=== PATIENT | female | born 1985 | race Caucasian/White ===

== ENCOUNTER → 2017-02-25 | Outpatient (REF) | payer BC | LOC: M SFHCWAGY 15:33 | PROVIDERS: ATTEND Nurse Practitioner Family | DX: Z12.4 Encounter for screening for malignant neoplasm of cervix (principal); R87.610 Atypical squamous cells of undetermined significance on cytologic smear of cervix (ASC-US) ==

== ENCOUNTER 2017-06-11 11:43 | Outpatient (CLI) | payer BC ==
[~2017-06-11] VITALS: Ht 175.3 cm; Wt 122.5 kg
[~2017-06-11 11:43] MED LIST: RANI150T PO; TRI-TAB2 PO
[2017-06-11] MEDS ORDERED: NS 1,000 ML IV SCH (12:00)
--- NOTE | 2017-06-11 13:04 | ROOR ---
Patient Name: Gena Henriquez Procedure Date: 06/11/2017 12:43 PM Date of : 1985 Age: 32 Room: [facility] Gender: Female Note Status: Finalized Procedure: Upper Endoscopy + Biopsies Indications: Heartburn Providers: Isra Moses MD Referring MD: Sal Guzman MD Requesting Provider: Medicines: Monitored Anesthesia Care Complications: No immediate complications. Procedure: Pre-Anesthesia Assessment: - The heart rate, respiratory rate, oxygen saturations, blood pressure, adequacy of pulmonary ventilation, and response to care were monitored throughout the procedure. The Endoscope was introduced through the mouth, and advanced to the second part of duodenum. The upper GI endoscopy was accomplished without difficulty. The patient tolerated the procedure well. Findings: The Z-line was irregular and was found 35 cm from the incisors. Non-severe esophagitis with no bleeding was found 35 cm from the incisors. Biopsies were taken with a cold forceps for histology. A medium-sized hiatal hernia was present. No other significant abnormalities were identified in a careful examination of the stomach. The exam of the duodenum was otherwise normal. Impression: - Z-line irregular, 35 cm from the incisors. - Non-severe reflux esophagitis. Biopsied. - Medium-sized hiatal hernia. - The examination was otherwise normal. Recommendation: - Await pathology results. - Discharge patient to home. - Follow an antireflux regimen. - Continue present medications. - Await pathology results. - Telephone GI clinic for pathology results in 1 week. - Repeat upper endoscopy for surveillance based on pathology results. - Return to referring physician. - The findings and recommendations were discussed with the patient's family. Isra Moses MD Isra Moses MD 06/11/2017 1:04:41 PM This report has been signed electronically. Number of Addenda: 0 Note Initiated On: 06/11/2017 12:43 PM Estimated Blood Loss: Estimated blood loss: none.
[2017-06-11] MEDS ORDERED: LIDOCAINE 2% INJ 100 MG/5 ML SDV (FOR ANES.) As Ordered ONE (13:10)
[2017-06-11] MEDS ORDERED: PROPOFOL 200 MG/20 ML VIAL As Ordered ONE (13:11)
--- NOTE | 2017-06-11 13:21 | ROOR ---
Patient Name: Gena Henriquez Procedure Date: 06/11/2017 12:44 PM Date of : 1985 Age: 32 Room: [facility] Gender: Female Note Status: Finalized Procedure: Total Colonoscopy to Cecum +ileoscopy + Bx. To r/o Microscopic Colitis Indications: Clinically significant diarrhea of unexplained origin Providers: Isra Moses MD Referring MD: Sal Guzman MD Requesting Provider: Medicines: Monitored Anesthesia Care Complications: No immediate complications. Procedure: Pre-Anesthesia Assessment: - The heart rate, respiratory rate, oxygen saturations, blood pressure, adequacy of pulmonary ventilation, and response to care were monitored throughout the procedure. The Colonoscope was introduced through the anus and advanced to the terminal ileum, with identification of the appendiceal orifice and IC valve. The colonoscopy was performed without difficulty. The patient tolerated the procedure well. The quality of the bowel preparation was excellent. Findings: The perianal and digital rectal examinations were normal. Non-bleeding internal hemorrhoids were found during retroflexion. The hemorrhoids were small and Grade I (internal hemorrhoids that do not prolapse). No other significant abnormalities were identified in a careful examination of the remainder of the colon. Biopsies for histology were taken with a cold forceps from the ascending colon, transverse colon and descending colon for evaluation of microscopic colitis. The terminal ileum appeared normal. The exam was otherwise without abnormality. Impression: - Non-bleeding internal hemorrhoids. - The examined portion of the ileum was normal. - The examination was otherwise normal. - Biopsies were taken with a cold forceps from the ascending colon, transverse colon and descending colon for evaluation of microscopic colitis. - The exam was otherwise normal to the cecum. Recommendation: - Patient has a contact number available for emergencies. The signs and symptoms of potential delayed complications were discussed with the patient. Return to normal activities tomorrow. Written discharge instructions were provided to the patient. - High fiber diet. - Discharge patient to home. - Continue present medications. - Await pathology results. - Telephone GI clinic for pathology results in 1 week. - Repeat colonoscopy at age 51 for screening purposes. - Return to referring physician. - The findings and recommendations were discussed with the patient's family. Isra Moses MD Isra Moses MD 06/11/2017 1:21:07 PM This report has been signed electronically. Number of Addenda: 0 Note Initiated On: 06/11/2017 12:44 PM Estimated Blood Loss: Estimated blood loss: none.
[2017-06-11 13:45] VITALS: BP 146/92
== END 2017-06-11 14:12 | disposition home or self-care (01) ==
LOC: M OPP 11:43
PROVIDERS: ATTEND Internal Medicine Gastroenterology
DX: K58.0 Irritable bowel syndrome with diarrhea (principal); R10.9 Unspecified abdominal pain; K64.0 First degree hemorrhoids; R12 Heartburn; K22.8 Other specified diseases of esophagus; K44.9 Diaphragmatic hernia without obstruction or gangrene; K21.0 Gastro-esophageal reflux disease with esophagitis; E78.5 Hyperlipidemia, unspecified; F41.9 Anxiety disorder, unspecified; G43.909 Migraine, unspecified, not intractable, without status migrainosus; Z79.899 Other long term (current) drug therapy; Z80.9 Family history of malignant neoplasm, unspecified

== ENCOUNTER → 2017-10-24 | Outpatient (REF) | payer BC ==
[2017-10-24 12:23] LABS: LUTEINIZING HORMONE 2.7 mIU/mL
[2017-10-24 12:24] LABS: ESTRADIOL < 19.0 PG/ML; FOLLICLE STIMULATING HORMONE 5.7 mIU/mL
== END ==
LOC: M LAB REF 11:40
DX: E28.2 Polycystic ovarian syndrome (principal)
CPT/HCPCS: 83001

== ENCOUNTER → 2018-04-30 | Outpatient (REF) | payer OTHER | LOC: M SFHCWAGY 13:58 | DX: Z12.4 Encounter for screening for malignant neoplasm of cervix (principal) ==

== ENCOUNTER → 2018-05-25 | Outpatient (REF) | payer OTHER | LOC: M SFHCWAGY 11:42 | DX: R87.615 Unsatisfactory cytologic smear of cervix (principal); Z12.4 Encounter for screening for malignant neoplasm of cervix ==

== ENCOUNTER → 2018-09-29 | Outpatient (CLI) | payer OTHER | LOC: M WUC 10:09 | DX: S80.12XA Contusion of left lower leg, initial encounter (principal); S90.02XA Contusion of left ankle, initial encounter; R60.0 Localized edema; X58.XXXA Exposure to other specified factors, initial encounter; Y92.9 Unspecified place or not applicable | CPT/HCPCS: 73590 ==

== ENCOUNTER → 2019-04-23 | Outpatient (CLI) | payer BC, OTHER ==
[2019-04-23 10:36] LABS: BASO # 0.1 10^3/uL (0.0-0.2); BASO % 0.5 % (0.0-1.0); EOS # 0.1 10^3/uL (0.0-0.50); EOS % 0.6 % (0.0-3.0); HEMATOCRIT 38.9 % (36.0-47.0); HEMOGLOBIN 12.8 g/dl (12.0-15.5); LYMPH # 2.7 10^3/uL (1.5-4.5); LYMPH % 26.8 % (24.0-44.0); MEAN CORPUSCULAR HEMOGLOBIN 29.6 pg (27.0-33.0); MEAN CORPUSCULAR HGB CONC 32.9 g/dl (32.0-36.5); MEAN CORPUSCULAR VOLUME 89.8 fl (80.0-96.0); MONO # 0.5 10^3/uL (0.0-0.8); NEUTROPHILS # 6.7 10^3/uL (1.8-7.7); NEUTROPHILS % 66.8 % (36.0-66.0); PLATELET COUNT, AUTOMATED 324 10^3/uL (150-450); RED BLOOD COUNT 4.33 10^6/uL (4.00-5.40)
[2019-04-23 11:53] LABS: HEPATITIS C VIRUS ABY INDEX 0.1 INDEX (<0.8); HIV 1&2 SCREEN CENTAUR NEGATIVE (NEGATIVE); RUBELLA IgG QUALITATIVE IMMUNE (IMMUNE)
[2019-04-23 11:57] LABS: CHLAMYDIA DNA AMPLIFICATION NEGATIVE (NEGATIVE); GC DNA AMPLIFICATION NEGATIVE (NEGATIVE)
== END ==
LOC: M LAB 09:37
PROVIDERS: ATTEND Specialist
DX: Z36.89 Encounter for other specified antenatal screening (principal); Z3A.00 Weeks of gestation of pregnancy not specified

== ENCOUNTER → 2019-05-06 | Outpatient (CLI) | payer BC, OTHER | LOC: M SMT 08:25 | PROVIDERS: ATTEND Specialist | DX: Z36.89 Encounter for other specified antenatal screening (principal); Z3A.00 Weeks of gestation of pregnancy not specified ==

== ENCOUNTER → 2019-08-10 | Outpatient (CLI) | payer BC, OTHER ==
[2019-08-10 15:53] LABS: HEMATOCRIT 34.6 % (36.0-47.0); HEMOGLOBIN 11.1 g/dl (12.0-15.5); MEAN CORPUSCULAR HEMOGLOBIN 29.8 pg (27.0-33.0); MEAN CORPUSCULAR HGB CONC 32.1 g/dl (32.0-36.5); MEAN CORPUSCULAR VOLUME 92.8 fl (80.0-96.0); PLATELET COUNT, AUTOMATED 306 10^3/uL (150-450); RED BLOOD COUNT 3.73 10^6/uL (4.00-5.40)
== END ==
LOC: M SMT 09:16
PROVIDERS: ATTEND Obstetrics & Gynecology
DX: Z34.82 Encounter for supervision of other normal pregnancy, second trimester (principal); Z36.89 Encounter for other specified antenatal screening

== ENCOUNTER → 2019-08-16 | Outpatient (CLI) | payer BC, OTHER | LOC: M LAB 07:11 | PROVIDERS: ATTEND Obstetrics & Gynecology | DX: Z34.82 Encounter for supervision of other normal pregnancy, second trimester (principal); Z36.89 Encounter for other specified antenatal screening ==

== ENCOUNTER → 2019-10-14 | Outpatient (REF) | payer OTHER | LOC: M SFHCWAGY 13:03 | PROVIDERS: ATTEND Specialist | DX: Z36.85 Encounter for antenatal screening for Streptococcus B (principal) ==

== ENCOUNTER → 2019-10-25 | Outpatient (CLI) | payer BC, OTHER | LOC: M PLALAB 12:16 | PROVIDERS: ATTEND Advanced Practice Midwife | DX: O99.213 Obesity complicating pregnancy, third trimester (principal) ==

== ENCOUNTER → 2019-10-28 | Outpatient (CLI) | payer BC, OTHER ==
--- NOTE | 2019-10-28 15:36 | REP ---
Clinical: Growth evaluation. Comparison: None. Findings: Examination demonstrates a single live intrauterine in cephalic presentation. motion is identified by technologist. Placenta is noted fundal and grade I without evidence for placenta previa or abruption. Amniotic fluid volume is normal. Cervix measures 3.6 cm in length and appears closed. No evidence for nuchal cord. Gestational age by current measurements 38 weeks 6 days FHR equals 132 beats per minute. BPD 9.7 cm 39 weeks 4 days HC 34.4 cm 39 weeks 4 days AC 35.8 cm 39 weeks 4 days FL 7.4 cm 39 weeks 6 days HL 6.6 cm 38 weeks 2 days HC/AC ratio 0.96 Estimated weight 3754 grams (84th percentile) Amniotic fluid index: 11.7 cm (7.4 - 24.0) Impression: Single live intrauterine in cephalic presentation with biometrical measurements at 38-week 6 days gestational age. Electronically Signed by Jun Foy MD 10/28/2019 03:27 P
== END ==
LOC: M WHC 13:59
PROVIDERS: ATTEND Advanced Practice Midwife
DX: O99.213 Obesity complicating pregnancy, third trimester (principal)

== ENCOUNTER 2019-11-06 15:46 | Inpatient (IN) | payer BC, OTHER ==
[2019-11-06] VITALS (7 sets, daily range): BP systolic 123–144; BP diastolic 68–94
[~2019-11-06] VITALS: Ht 175.3 cm; Wt 145.9 kg
[2019-11-06 16:59] LABS: HEMATOCRIT 38.6 % (36.0-47.0); HEMOGLOBIN 12.4 g/dl (12.0-15.5); MEAN CORPUSCULAR HEMOGLOBIN 28.2 pg (27.0-33.0); MEAN CORPUSCULAR HGB CONC 32.1 g/dl (32.0-36.5); MEAN CORPUSCULAR VOLUME 87.9 fl (80.0-96.0); PLATELET COUNT, AUTOMATED 288 10^3/uL (150-450); RED BLOOD COUNT 4.39 10^6/uL (4.00-5.40); WHITE BLOOD COUNT 11.2 10^3/uL (4.0-10.0)
[2019-11-06] MEDS: miSOPROStol 50 MCG 1/2 TAB (S0191) SL SCH ×2 (17:01→21:09)
[2019-11-06] MEDS ORDERED: PRENTAB9 PO (18:21)
[2019-11-06] MEDS ORDERED: ACETAMINOPHEN 500 MG TAB PO PRN (18:30)
--- NOTE | 2019-11-06 18:46 | HPE ---
DATE OF ADMISSION: 11/06/2019 A 34-year-old G1, P0 female, 39-0/7 weeks gestation by last menstrual period (LMP), consistent with eight week ultrasound, estimated date of confinement (EDC) 11/13/2019, presents for labor induction. Patient has a large for gestational age infant, as determined by recent ultrasound. She has occasional contractions. She denies vaginal bleeding. There is good movement. The patient initiated care with [facility]. No other -related complications. MEDICAL HISTORY: Noncontributory. SURGICAL HISTORY: Tonsillectomy. ALLERGIES: None. SOCIAL HISTORY: Patient is . She denies cigarettes, alcohol, drug use. She lives in [place], [place]. FAMILY HISTORY: Noncontributory. PHYSICAL EXAMINATION: Blood pressure 144/94, pulse 94, afebrile. No apparent distress. HEAD AND NECK EXAM: Normal. HEART: Regular rate and rhythm. ABDOMEN: Nontender. Gravid. HEART TONES: Category 1. STERILE VAGINAL EXAM: 2 cm, 90% effaced, -2 posterior, soft vertex. CONTRACTIONS: Irregular. EXTREMITIES: Nontender. LABORATORIES: Group B Streptococcus (GBS) positive, HIV negative. Rapid plasma reagin (RPR) negative. Diabetes screen normal. ASSESSMENT: A 34-year-old G1 at 39-0/7 weeks gestation presents for labor induction. PLAN: The patient is admitted on 11/06/2019. Risks of induction were discussed.
[2019-11-07] VITALS (42 sets, daily range): BP systolic 122–150; BP diastolic 61–97
[2019-11-07] MEDS: miSOPROStol 50 MCG 1/2 TAB (S0191) SL SCH (01:04)
[2019-11-07] MEDS ORDERED: BUTORPHANOL 2 MG/ML INJ (J0595) IV ONE (03:30)
[2019-11-07] MEDS ORDERED: PROMETHAZINE INJ 25 MG/ML VIAL (J2550) IV ONE (03:30)
[2019-11-07] MEDS ORDERED: OXYTOCIN DRIP 30 UNITS in IV 1 EA IV SCH ×2 (05:45→22:18)
[2019-11-07] MEDS ORDERED: PENICILLIN G POTASSIUM IV 5 MU in D5W MINI-BAG PLUS 100 ML IV STA (09:02)
[2019-11-07] MEDS: LR 1,000 ML IV SCH ×3 (09:16→22:18)
[2019-11-07] MEDS ORDERED: FENTANYL/ROPIVACAINE/NACL BAG 100 ML EPIDURAL SCH (13:25)
[2019-11-07] MEDS ORDERED: NALOXONE INJ 0.4 MG/1 ML VIAL (J2310) IV PRN ×3 (13:25→22:10)
[2019-11-07] MEDS ORDERED: ePHEDrine SULFATE 25 MG/5 ML(5MG/ML) SYRINGE IV PRN (13:25)
[2019-11-07] MEDS ORDERED: LACTATED RINGER'S 1000 ML IV PRN (13:25)
[2019-11-07] MEDS ORDERED: EPIDURAL/PCA KEYS XX PRN (13:25)
[2019-11-07] MEDS ORDERED: ONDANSETRON 4MG/2ML VIAL (J2405) IV PRN ×4 (13:25→22:30)
[2019-11-07] MEDS ORDERED: diphenhydrAMINE INJ 50MG/ML VIAL (J1200) IV PRN ×2 (13:25→22:10)
[2019-11-07] MEDS ORDERED: REFRIGERATOR IV KEYS XX PRN (13:25)
[2019-11-07] MEDS ORDERED: FENTANYL 2MCG/ML ROPIVACAINE 0.2% IN 0.9% NACL 100ML IVBAG As Ordered ONE (13:25)
[2019-11-07] MEDS ORDERED: EPIDURAL COMMENT XX SCH (13:25)
[2019-11-07] MEDS: PENICILLIN G POTASSIUM IV 2.5 MU in IV 1 EA IV SCH ×2 (13:39→18:01)
[2019-11-07] MEDS ORDERED: ceFAZolin 2 GM/D5W 50 ML IV BAG (J0690 PER 500MG) As Ordered ONE (20:57)
[2019-11-07] MEDS ORDERED: BICITRA 30ML SOLN UDC As Ordered ONE (20:57)
[2019-11-07] MEDS ORDERED: ceFAZolin SOD 2 GM in IV 1 EA IV ONE (21:00)
[2019-11-07] MEDS ORDERED: BICITRA 30ML SOLN UDC PO ONE (21:00)
[2019-11-07] MEDS ORDERED: KETOROLAC 60 MG/2 ML VIAL (J1885) As Ordered ONE (21:48)
[2019-11-07] MEDS ORDERED: LIDOCAINE 2% W/EPIN INJ 20ML **PRES FREE As Ordered ONE (21:48)
[2019-11-07] MEDS ORDERED: ONDANSETRON 4MG/2ML VIAL (J2405) As Ordered ONE (21:48)
[2019-11-07] MEDS ORDERED: MEPERIDINE 50 MG/ML 1ML VIAL (J2175) As Ordered ONE (21:54)
[2019-11-07] MEDS ORDERED: fentaNYL 100 MCG/2 ML INJECTION (J3010) As Ordered ONE ×2 (21:56→22:57)
[2019-11-07] MEDS ORDERED: MORPHINE PRES-FREE INJ 10 MG/10 ML VIAL (J2274) As Ordered ONE (22:06)
[2019-11-07] MEDS ORDERED: NALBUPHINE HCL 10 MG/ML AMP (J2300) IV PRN (22:10)
[2019-11-07] MEDS ORDERED: METOCLOPRAMIDE INJ 10MG/2ML VIAL (J2765) IV PRN ×2 (22:10→22:15)
[2019-11-07] MEDS ORDERED: KETOROLAC 30 MG/ML VIAL (J1885) IV PRN (22:15)
[2019-11-07] MEDS ORDERED: LR 1,000 ML IV SCH (22:15)
[2019-11-07] MEDS ORDERED: RHOGAM 300 MCG (1500 IU) INJ (J2790) IM SCH (22:30)
[2019-11-07] MEDS ORDERED: MEASLES,MUMPS,RUBELLA VACCINE INJ (MMR-II) (90707) SC SCH (22:30)
[2019-11-07] MEDS ORDERED: OXYTOCIN 30 UNITS IN 0.9% NaCl 500ML IV BAG (J2590) As Ordered ONE (22:33)
[2019-11-07] MEDS: fentaNYL 100 MCG/2 ML INJECTION (J3010) IV PRN ×3 (23:02→23:18)
[2019-11-08] VITALS (9 sets, daily range): BP systolic 104–133; BP diastolic 62–82
[2019-11-08] MEDS ORDERED: KETOROLAC 30 MG/ML VIAL (J1885) IV SCH (04:30)
[2019-11-08] MEDS: PERCOCET 5MG/325MG TAB PO PRN ×2 (06:32→15:54)
[2019-11-08] MEDS: LR 1,000 ML IV SCH (06:49)
[2019-11-08 07:04] LABS: HEMATOCRIT 30.9 % (36.0-47.0); MEAN CORPUSCULAR VOLUME 87.8 fl (80.0-96.0); PLATELET COUNT, AUTOMATED 247 10^3/uL (150-450); RED BLOOD COUNT 3.52 10^6/uL (4.00-5.40); WHITE BLOOD COUNT 12.6 10^3/uL (4.0-10.0)
[2019-11-08 07:05] LABS: HEMOGLOBIN 10.2 g/dl (12.0-15.5)
[2019-11-08] MEDS ORDERED: OXYC1TAB23 PO (07:21)
[2019-11-08] MEDS: PRENATAL VITAMINS CHEWABLE TABLET PO SCH (08:36)
[2019-11-08] MEDS: IBUPROFEN 800 MG TAB PO SCH ×2 (12:00→20:03)
--- NOTE | 2019-11-08 19:48 | RO ---
DATE OF PROCEDURE: 11/07/2019 PREPROCEDURE DIAGNOSIS: 39 weeks, arrest of dilation, large for gestational age . POSTPROCEDURE DIAGNOSIS: 39 weeks, arrest of dilation, large for gestational age infant. PROCEDURE: Primary low transverse section. SURGEON: Leo Bianchi MD TITLE SEARCH MANAGER: Alexey Lindsay DO ANESTHESIA: Epidural. ESTIMATED BLOOD LOSS: 500 mL. URINE OUTPUT: 150 mL. FINDINGS: 4190 gram, 9 pound 4 ounce male , scores 9 and 9 in the left occiput posterior position along with asynclitism. There was a 1 cm superficial laceration on the right side of the baby's forehead as a result of the procedure. Normal uterus, fallopian tubes, and ovaries. DESCRIPTION OF PROCEDURE: The patient was taken to the operating room where epidural anesthesia was induced. She was prepped and draped in a sterile fashion in the supine position. A Schmitt catheter was already in place. A Pfannenstiel skin incision was made with a scalpel and carried through to the fascia. The fascia was nicked and extended. The fascia was dissected off the rectus muscles, the peritoneal cavity was entered. A Mobius retractor was placed, a bladder flap was created. A curvilinear incision was made in the lower uterine segment until clear fluid was noted. This was extended manually. The infant was delivered from the vertex position without difficulty. Loose nuchal cord times one was noted. The shoulders delivered with ease. The cord was doubly clamped and cut. The was handed off to awaiting nurses. The placenta was expressed. The uterus was closed with #0 Vicryl in a running locked fashion. A second imbricating layer of #0 Vicryl was placed. The Mobius retractor was removed. The peritoneum was closed with #2-0 Vicryl in a running fashion. The fascia was closed with #0 Vicryl in a running fashion. The deep layer was irrigated and closed with #2-0 chromic. The skin was closed with #4-0 Monocryl subcuticular sutures. Sponge, instrument, and needle counts were correct. The patient went to the recovery room in stable condition.
[2019-11-09 02:00] VITALS: BP 137/84
[2019-11-09] MEDS: DOCUSATE SODIUM 100 MG CAP PO PRN (02:40)
[2019-11-09] MEDS: PERCOCET 5MG/325MG TAB PO PRN ×3 (02:41→16:54)
[2019-11-09] MEDS: IBUPROFEN 800 MG TAB PO SCH ×3 (04:06→19:54)
[2019-11-09 06:01] VITALS: BP 123/70
--- NOTE | 2019-11-09 08:03 | IPNPDOC ---
Progress Note Date of Service: Nov 09, 2019 Day#: 2 Progress Note SUBJECT: Patient had low urinary output yesterday but output picked up through out the night and her catheter was removed. She has voided without difficulty. She reports pain is being managed well. OBJECTIVE: VITAL SIGNS: Within normal limits, afebrile. Alert and oriented times three. Breath sounds clear to auscultation. Heart rate: Regular rate and rhythm, no murmurs, rubs or gallops. Abdomen: Fundus firm at U-1. Minimal lochia. ASSESSMENT: Day 2 postoperative PLAN: 1. Continue supportive nursing care and pain management. 2. Anticipate discharge tomorrow. 3. Patient to ambulate today. VS, I&O, 24H, Fishbone Vital Signs/I&O Vital Signs Date Time Temp Pulse Resp B/P (MAP) Pulse Ox O2 Delivery O2 Flow Rate FiO2 11/09/19 06:01 97.6 77 18 123/70 (87) 96 Room Air I&O- Last 24 Hours up to 6 AM 11/09/19 06:00 Output Total 1150 ml Balance -1150 ml LAKISHA GARDUNO CNM Nov 09, 2019 08:03
[2019-11-09] MEDS: PRENATAL VITAMINS CHEWABLE TABLET PO SCH (08:24)
[2019-11-09 10:00] VITALS: BP 122/68
[2019-11-09 18:00] VITALS: BP 129/72
[2019-11-10] MEDS: IBUPROFEN 800 MG TAB PO SCH ×2 (04:17→11:54)
[2019-11-10 06:00] VITALS: BP 134/71
[2019-11-10] MEDS: PERCOCET 5MG/325MG TAB PO PRN ×2 (08:16→14:44)
[2019-11-10] MEDS: DOCUSATE SODIUM 100 MG CAP PO PRN (08:16)
[2019-11-10] MEDS: PRENATAL VITAMINS CHEWABLE TABLET PO SCH (09:37)
== END 2019-11-10 14:50 | disposition home or self-care (01) | DRG 540 ==
LOC: M LDI 15:46 → M OBS 11-07 23:48
PROVIDERS: ADMIT Specialist; ATTEND Specialist
PROC: 10D00Z1 Extraction of Products of Conception, Low, Open Approach (ICD-10-PCS; principal; 2019-11-07 21:15)
DX: O62.0 Primary inadequate contractions (principal); O99.824 Streptococcus B carrier state complicating childbirth; Z37.0 Single live birth; Z3A.39 39 weeks gestation of pregnancy; O36.63X0 Maternal care for excessive fetal growth, third trimester, not applicable or unspecified

== ENCOUNTER → 2020-03-03 | Outpatient (REF) | payer OTHER ==
[~2020-03-03] MED LIST changes: +OXYC1TAB23 PO; +PRENTAB9 PO
== END ==
LOC: M LAB REF 18:19
PROVIDERS: ATTEND Dermatology
DX: D48.9 Neoplasm of uncertain behavior, unspecified (principal)

== ENCOUNTER → 2020-07-11 | Outpatient (CLI) | payer BC, OTHER | LOC: M LABSMTC 13:35 | PROVIDERS: ATTEND Family Medicine | DX: Z20.828 Contact with and (suspected) exposure to other viral communicable diseases (principal) | CPT/HCPCS: C9803; U0003 ==

== ENCOUNTER → 2020-11-16 | Outpatient (REF) | payer OTHER | LOC: M SMT 13:43 | PROVIDERS: ATTEND Nurse Practitioner Family | DX: Z12.4 Encounter for screening for malignant neoplasm of cervix (principal) | CPT/HCPCS: 87624; G0123 ==

== ENCOUNTER → 2022-03-05 | Outpatient (REF) | payer OTHER | LOC: M PLALAB 16:25 | PROVIDERS: ATTEND Advanced Practice Midwife | DX: Z12.4 Encounter for screening for malignant neoplasm of cervix (principal) | CPT/HCPCS: 87624; G0123 ==

== ENCOUNTER → 2022-03-06 | Outpatient (CLI) | payer OTHER ==
[2022-03-06 10:44] LABS: THYROID STIMULATING HORMONE 1.46 uIU/ML (0.358-3.740)
[2022-03-06 10:47] LABS: ESTRADIOL 34.6 PG/ML; FOLLICLE STIMULATING HORMONE 12.1 mIU/mL; LUTEINIZING HORMONE 6.2 mIU/mL
== END ==
LOC: M PLALAB 09:00
PROVIDERS: ATTEND Advanced Practice Midwife
DX: N92.6 Irregular menstruation, unspecified (principal)

== ENCOUNTER → 2022-03-13 | Outpatient (CLI) | payer BC, OTHER | LOC: M WHC 07:40 | PROVIDERS: ATTEND Advanced Practice Midwife | DX: N92.6 Irregular menstruation, unspecified (principal) ==

== ENCOUNTER → 2022-03-24 | Outpatient (CLI) | payer BC, OTHER | LOC: M LAB 10:43 | PROVIDERS: ATTEND Advanced Practice Midwife | DX: N92.6 Irregular menstruation, unspecified (principal) ==

== ENCOUNTER → 2022-09-10 | Outpatient (CLI) | payer BC, OTHER ==
[~2022-09-10] MED LIST changes: +E-Z-GAS II EFFERVESCENT PACKET (SODIUM BICARB./CITRIC ACID/SIMETHICONE) As Ordered ONE; +E-Z-HD 98% w/w 340GM SUSP BTL As Ordered ONE; +E-Z-PAQUE 96% w/w SUSP 176GM BTL As Ordered ONE
== END ==
LOC: M RAD 09:18
PROVIDERS: ATTEND Family Medicine
DX: R10.816 Epigastric abdominal tenderness (principal)

== ENCOUNTER → 2023-02-12 | Outpatient (REF) | payer BC, OTHER ==
[~2023-02-12] MED LIST changes: -E-Z-GAS II EFFERVESCENT PACKET (SODIUM BICARB./CITRIC ACID/SIMETHICONE) As Ordered ONE; -E-Z-HD 98% w/w 340GM SUSP BTL As Ordered ONE; -E-Z-PAQUE 96% w/w SUSP 176GM BTL As Ordered ONE
== END ==
LOC: M LAB REF 16:31
PROVIDERS: ATTEND Family Medicine
DX: R63.5 Abnormal weight gain (principal)

== ENCOUNTER → 2023-03-18 | Outpatient (CLI) | payer OTHER, BC ==
[2023-03-18 18:07] LABS: HCG, SERUM QUANTITATIVE 62.1 MIU/ML (<4.2)
[2023-03-18 18:09] LABS: THYROID STIMULATING HORMONE 1.599 uIU/ML (0.55-4.78)
== END ==
LOC: M PLALAB 15:04
PROVIDERS: ATTEND Advanced Practice Midwife
DX: N91.2 Amenorrhea, unspecified (principal); Z12.4 Encounter for screening for malignant neoplasm of cervix
CPT/HCPCS: 36415; 84443; 84702; 87624; G0123

== ENCOUNTER → 2023-03-20 | Outpatient (CLI) | payer BC, OTHER ==
[2023-03-20 18:34] LABS: HCG, SERUM QUALITATIVE POSITIVE (NEGATIVE)
[2023-03-21 14:21] LABS: HCG, SERUM QUANTITATIVE 152.8 MIU/ML (<4.2)
== END ==
LOC: M PLALAB 15:10
PROVIDERS: ATTEND Advanced Practice Midwife
DX: N91.2 Amenorrhea, unspecified (principal)

== ENCOUNTER → 2023-05-12 | Outpatient (CLI) | payer BC, OTHER ==
[2023-05-12 13:39] LABS: HEMATOCRIT 36.9 % (36.0-47.0); HEMOGLOBIN 12.3 g/dl (12.0-15.5); MEAN CORPUSCULAR HEMOGLOBIN 29.7 pg (27.0-33.0); MEAN CORPUSCULAR HGB CONC 33.3 g/dl (32.0-36.5); MEAN CORPUSCULAR VOLUME 89.1 fl (80.0-96.0); PLATELET COUNT, AUTOMATED 290 10^3/uL (150-450); RED BLOOD COUNT 4.14 10^6/uL (4.00-5.40); WHITE BLOOD COUNT 9.7 10^3/uL (4.0-10.0)
[2023-05-12 14:16] LABS: HIV 1&2 SCREEN NEGATIVE (NEGATIVE)
[2023-05-12 14:24] LABS: HEPATITIS C VIRUS ABY INDEX 0.07 INDEX (<0.8)
[2023-05-12 15:28] LABS: GC DNA AMPLIFICATION NEGATIVE (NEGATIVE)
== END ==
LOC: M PLALAB 11:18
PROVIDERS: ATTEND Specialist
DX: Z34.82 Encounter for supervision of other normal pregnancy, second trimester (principal)

== ENCOUNTER → 2023-06-11 | Outpatient (REF) | payer OTHER, BC | LOC: M SFHCWAGY 12:51 | PROVIDERS: ATTEND Specialist | DX: Z34.82 Encounter for supervision of other normal pregnancy, second trimester (principal) ==

== ENCOUNTER → 2023-06-24 | Outpatient (CLI) | payer BC, OTHER | LOC: M WHC 08:49 | PROVIDERS: ATTEND Specialist | DX: Z34.82 Encounter for supervision of other normal pregnancy, second trimester (principal) ==

== ENCOUNTER → 2023-07-17 | Outpatient (CLI) | payer BC, OTHER | LOC: M WHC 12:52 | PROVIDERS: ATTEND Specialist | DX: O30.042 Twin pregnancy, dichorionic/diamniotic, second trimester (principal) ==

== ENCOUNTER → 2023-08-05 | Outpatient (CLI) | payer BC, OTHER ==
[2023-08-05 14:19] LABS: HEMATOCRIT 34.2 % (36.0-47.0); HEMOGLOBIN 11.1 g/dl (12.0-15.5); MEAN CORPUSCULAR HEMOGLOBIN 29.8 pg (27.0-33.0); MEAN CORPUSCULAR HGB CONC 32.5 g/dl (32.0-36.5); MEAN CORPUSCULAR VOLUME 91.7 fl (80.0-96.0); PLATELET COUNT, AUTOMATED 327 10^3/uL (150-450); RED BLOOD COUNT 3.73 10^6/uL (4.00-5.40); WHITE BLOOD COUNT 15.3 10^3/uL (4.0-10.0)
[2023-08-05 15:33] LABS: GC DNA AMPLIFICATION NEGATIVE (NEGATIVE)
== END ==
LOC: M PLALAB 09:29
PROVIDERS: ATTEND Advanced Practice Midwife
DX: O30.042 Twin pregnancy, dichorionic/diamniotic, second trimester (principal); Z3A.00 Weeks of gestation of pregnancy not specified

== ENCOUNTER → 2023-08-19 | Outpatient (CLI) | payer BC, OTHER | LOC: M PLALAB 10:11 | PROVIDERS: ATTEND Advanced Practice Midwife | DX: O30.042 Twin pregnancy, dichorionic/diamniotic, second trimester (principal) ==

== ENCOUNTER → 2023-08-28 | Outpatient (CLI) | payer BC, OTHER | LOC: M WHC 13:01 | PROVIDERS: ATTEND Advanced Practice Midwife | DX: O30.042 Twin pregnancy, dichorionic/diamniotic, second trimester (principal); Z3A.27 27 weeks gestation of pregnancy ==

== ENCOUNTER → 2023-09-26 | Outpatient (CLI) | payer BC, OTHER | LOC: M WHC 14:32 | PROVIDERS: ATTEND Specialist | DX: O30.043 Twin pregnancy, dichorionic/diamniotic, third trimester (principal); Z3A.31 31 weeks gestation of pregnancy ==

== ENCOUNTER 2023-11-04 06:39 | Inpatient (IN) | payer BC, OTHER ==
[~2023-11-04] VITALS: Ht 175.3 cm; Wt 153.5 kg
[2023-11-04] VITALS (9 sets, daily range): BP systolic 122–141; BP diastolic 69–92; O2SAT 95–99
[~2023-11-04 06:39] MED LIST changes: +FLON1SPR NARES
[2023-11-04] MEDS ORDERED: AMOX875T2 (06:52)
[2023-11-04] MEDS ORDERED: HOME MED LIST COMPLETE! XX SCH (06:55)
[2023-11-04] MEDS ORDERED: LACTATED RINGER'S 1000 ML IV STA (07:17)
[2023-11-04] MEDS ORDERED: ceFAZolin SOD 3 GM IV Place Holder IV ONE (07:20)
[2023-11-04] MEDS ORDERED: LR 1,000 ML IV SCH ×2 (07:20→10:10)
[2023-11-04] MEDS ORDERED: ceFAZolin SOD 2 GM in IV 1 EA IV ONE (07:35)
[2023-11-04] MEDS ORDERED: ceFAZolin SOD 1 GM in D5W MINI-BAG PLUS 50 ML IV ONE (07:35)
[2023-11-04 07:43] LABS: HEMATOCRIT 35.6 % (36.0-47.0); HEMOGLOBIN 11.8 g/dl (12.0-15.5); MEAN CORPUSCULAR HEMOGLOBIN 28.4 pg (27.0-33.0); MEAN CORPUSCULAR HGB CONC 33.1 g/dl (32.0-36.5); MEAN CORPUSCULAR VOLUME 85.8 fl (80.0-96.0); PLATELET COUNT, AUTOMATED 284 10^3/uL (150-450); RED BLOOD COUNT 4.15 10^6/uL (4.00-5.40); WHITE BLOOD COUNT 11.6 10^3/uL (4.0-10.0)
[2023-11-04] MEDS ORDERED: BICITRA 30ML SOLN UDC PO ONE (09:00)
[2023-11-04] MEDS ORDERED: ACETAMINOPHEN 1000MG 100ML IV BAG As Ordered ONE (09:17)
[2023-11-04] MEDS ORDERED: KETOROLAC 60MG 2ML VIAL As Ordered ONE (09:17)
[2023-11-04] MEDS ORDERED: MORPHINE PRES-FREE INJ 10 MG/10 ML VIAL As Ordered ONE (09:17)
[2023-11-04] MEDS ORDERED: METOCLOPRAMIDE INJ 10MG/2ML VIAL As Ordered ONE (09:17)
[2023-11-04] MEDS ORDERED: ONDANSETRON 4MG 2ML VIAL As Ordered ONE (09:17)
[2023-11-04] MEDS ORDERED: OXYTOCIN 30UNITS IN 0.9% NaCl 500ML IV BAG As Ordered ONE ×2 (09:17→09:42)
[2023-11-04] MEDS ORDERED: ePHEDrine SULFATE 25 MG/5 ML(5MG/ML) SYRINGE As Ordered ONE (09:21)
[2023-11-04] MEDS ORDERED: PHENYLephrine 500MCG 5ML (100MCG/ML) SYRINGE As Ordered ONE (09:21)
[2023-11-04 09:25] LABS: CORD GAS ABE V -1.3; CORD GAS HCO3 V 26.8 MMOL/L; CORD GAS PH V 7.283 UNITS; CORD GAS PO2 V 16.3 mmHg; CORD GAS SBC V 21.7 MMOL/L; CORD GAS TCO2 V 28.6 MMOL/L
[2023-11-04 09:27] LABS: CORD GAS ABE A -5.3; CORD GAS HCO3 A 24.9 MMOL/L; CORD GAS O2 SAT A 37.5 %; CORD GAS PCO2 A 67.7 mmHg; CORD GAS PH A 7.184 UNITS; CORD GAS PO2 A 20.6 mmHg; CORD GAS SBC A 18.6 MMOL/L
[2023-11-04 09:29] LABS: CORD GAS ABE A -2.4; CORD GAS HCO3 A 26.2 MMOL/L; CORD GAS O2 SAT A 42.2 %; CORD GAS PCO2 A 60.5 mmHg; CORD GAS PH A 7.255 UNITS; CORD GAS PO2 A 19.1 mmHg; CORD GAS TCO2 A 28.1 MMOL/L
[2023-11-04 09:30] LABS: CORD GAS ABE V -3.6; CORD GAS HCO3 V 23.8 MMOL/L; CORD GAS O2 SAT V 74.2 %; CORD GAS PH V 7.286 UNITS; CORD GAS PO2 V 31.5 mmHg; CORD GAS SBC V 20.9 MMOL/L; CORD GAS TCO2 V 25.3 MMOL/L
[2023-11-04] MEDS ORDERED: diphenhydrAMINE 50MG/ML VIAL IV PRN (10:10)
[2023-11-04] MEDS ORDERED: PERCOCET 5MG/325MG TAB PO PRN (10:10)
[2023-11-04] MEDS ORDERED: **NOTE PATIENT COMMENT** MISC XX SCH (10:10)
[2023-11-04] MEDS ORDERED: oxyCODONE 5MG TAB PO PRN (10:10)
[2023-11-04] MEDS ORDERED: OXYTOCIN DRIP 30 UNITS in IV 1 EA IV SCH (10:10)
[2023-11-04] MEDS ORDERED: HYDROMORPHONE HCL 0.5 MG/ 0.5 ML SYRINGE IV PRN (10:10)
[2023-11-04] MEDS: SLF 3 ML SYR IV SCH ×2 (10:10→18:10)
[2023-11-04] MEDS ORDERED: fentaNYL 100 MCG/2 ML INJECTION IV PRN (10:10)
[2023-11-04] MEDS ORDERED: RHOGAM 300MCG (1500IU) INJ IM SCH (10:10)
[2023-11-04] MEDS ORDERED: DOCUSATE SODIUM 100MG CAPSULE PO PRN (10:10)
[2023-11-04] MEDS ORDERED: ONDANSETRON 4MG 2ML VIAL IV PRN ×2 (10:10)
[2023-11-04] MEDS ORDERED: MEPERIDINE 25 MG/ML 1ML VIAL IV PRN (10:10)
[2023-11-04] MEDS ORDERED: METOCLOPRAMIDE INJ 10MG/2ML VIAL IV PRN (10:10)
[2023-11-04] MEDS ORDERED: NALOXONE INJ 0.4MG/1ML VIAL IV PRN ×2 (10:10)
[2023-11-04] MEDS: KETOROLAC 30 MG/ML 1ML VIAL IV SCH ×2 (16:51→22:21)
[2023-11-04] MEDS ORDERED: IBUP80TA PO (21:07)
[2023-11-04] MEDS ORDERED: OXYC1TAB23 PO (21:07)
[2023-11-04] MEDS ORDERED: COLA100C5 PO (21:07)
[2023-11-05] VITALS (7 sets, daily range): BP systolic 135–157; BP diastolic 72–96; TEMP 97.8; O2SAT 97–100
[2023-11-05] MEDS: SLF 3 ML SYR IV SCH (02:10)
[2023-11-05] MEDS: KETOROLAC 30 MG/ML 1ML VIAL IV SCH (04:20)
[2023-11-05] MEDS: SIMETHICONE 80MG CHEW TAB PO PRN ×2 (04:23→15:32)
[2023-11-05 07:02] LABS: MEAN CORPUSCULAR HEMOGLOBIN 28.3 pg (27.0-33.0); MEAN CORPUSCULAR HGB CONC 32.9 g/dl (32.0-36.5); MEAN CORPUSCULAR VOLUME 86.2 fl (80.0-96.0); PLATELET COUNT, AUTOMATED 237 10^3/uL (150-450); RED BLOOD COUNT 3.25 10^6/uL (4.00-5.40); WHITE BLOOD COUNT 12.4 10^3/uL (4.0-10.0)
[2023-11-05 07:09] LABS: HEMOGLOBIN 9.2 g/dl (12.0-15.5)
[2023-11-05] MEDS: PRENATAL VITAMINS CHEWABLE TABLET PO SCH (08:52)
[2023-11-05] MEDS: PERCOCET 5MG/325MG TAB PO PRN ×2 (10:51→17:12)
[2023-11-05] MEDS: IBUPROFEN 800 MG TAB PO SCH ×2 (12:10→19:53)
[2023-11-06 02:00] VITALS: BP 136/92; O2SAT 97
[2023-11-06] MEDS: IBUPROFEN 800 MG TAB PO SCH ×2 (04:58→11:34)
[2023-11-06 06:00] VITALS: O2SAT 98
[2023-11-06] MEDS: PRENATAL VITAMINS CHEWABLE TABLET PO SCH (08:53)
[2023-11-06] MEDS: SIMETHICONE 80MG CHEW TAB PO PRN ×3 (08:54→16:23)
[2023-11-06] MEDS ORDERED: MEASLES,MUMPS,RUBELLA VACCINE INJ (MMR-II) SC.IMMUN ONE (09:00)
[2023-11-06 10:00] VITALS: BP_SYST 142; BP_SYST 161; BP_DIAS 92; O2SAT 100
[2023-11-06] MEDS: PERCOCET 5MG/325MG TAB PO PRN (11:35)
[2023-11-06 11:39] VITALS: BP 148/92
[2023-11-06 14:00] VITALS: BP 133/88; O2SAT 99
== END 2023-11-06 16:24 | disposition home or self-care (01) | DRG 540 ==
LOC: M LDI 06:39 → M OBS 11:15
PROVIDERS: ADMIT Specialist; ATTEND Specialist
PROC: 0UB70ZZ Excision of Bilateral Fallopian Tubes, Open Approach (ICD-10-PCS; 2023-11-04)
PROC: 10D00Z1 Extraction of Products of Conception, Low, Open Approach (ICD-10-PCS; principal; 2023-11-04 08:30)
DX: O34.211 Maternal care for low transverse scar from previous cesarean delivery (principal); O10.92 Unspecified pre-existing hypertension complicating childbirth; Z37.2 Twins, both liveborn; Z3A.37 37 weeks gestation of pregnancy; O09.523 Supervision of elderly multigravida, third trimester; O32.1XX0 Maternal care for breech presentation, not applicable or unspecified; Z30.2 Encounter for sterilization; O30.049 Twin pregnancy, dichorionic/diamniotic, unspecified trimester

== ENCOUNTER → 2023-11-28 | Outpatient (CLI) | payer BC, OTHER ==
[~2023-11-28] MED LIST changes: +AMOX875T2; +COLA100C5 PO; +IBUP80TA PO
== END ==
LOC: M RAD 08:58
PROVIDERS: ATTEND Physician Assistant
DX: J32.8 Other chronic sinusitis (principal)

== ENCOUNTER → 2024-07-30 | Outpatient (REF) | payer OTHER, BC ==
[2024-07-30 13:31] LABS: C REACTIVE PROTEIN QUANTITATIV 1.5 MG/DL (<1.0)
[2024-07-30 13:33] LABS: RHEUMATOID FACTOR QUANT 12.6 IU/ML (<14)
[2024-08-02 13:07] LABS: ANA SCREEN, IFA NEGATIVE (NEGATIVE)
== END ==
LOC: M LAB REF 12:16
PROVIDERS: ATTEND Family Medicine
DX: M25.50 Pain in unspecified joint (principal)

== ENCOUNTER → 2024-10-11 | Outpatient (CLI) | payer OTHER | LOC: M PLALAB 09:23 | PROVIDERS: ATTEND Specialist | DX: N91.2 Amenorrhea, unspecified (principal) ==

== ENCOUNTER → 2024-12-20 | Outpatient (CLI) | payer BC ==
[2024-12-20 13:36] LABS: THYROID STIMULATING HORMONE 1.29 uIU/ML (0.55-4.78)
[2024-12-20 13:38] LABS: ESTRADIOL 157.8 PG/ML; LUTEINIZING HORMONE 22.5 mIU/ML; PROLACTIN 9.25 NG/ML
[2024-12-20 13:39] LABS: FREE T4 1.09 NG/DL (0.89-1.76)
[2024-12-20 13:40] LABS: PROGESTERONE 0.44 NG/ML
== END ==
LOC: M PLALAB 10:57
PROVIDERS: ATTEND Specialist
DX: N92.6 Irregular menstruation, unspecified (principal)